=== PATIENT | female | born 1935 | race Asian ===

== ENCOUNTER 2021-02-04 08:17 | Emergency (ER) | payer MEDICARE, OTHER ==
[~2021-02-04] VITALS: Ht 154.9 cm; Wt 54.5 kg
[2021-02-04 08:44] VITALS: BP 142/103
[2021-02-04] MEDS ORDERED: SILVER SULFADIAZINE 1% 25 GM CREAM TP ONE (09:15)
[2021-02-04] MEDS ORDERED: PERTUSS(ACELL),DIPH,TET VAC/PF 0.5 ML SYRINGE IM. ONE (09:30)
[2021-02-04] MEDS ORDERED: ACETAMINOPHEN 325 MG TABLET PO ONE (09:30)
[2021-02-04] MEDS ORDERED: BACITRACIN 0.9 GM PACKET OINTMENT TP ONE (09:30)
== END 2021-02-04 10:00 | disposition home or self-care (01) ==
LOC: EMS 08:17
DX: T24.202A Burn of second degree of unspecified site of left lower limb, except ankle and foot, initial encounter (principal); X11.8XXA Contact with other hot tap-water, initial encounter; Y93.89 Activity, other specified; Y92.89 Other specified places as the place of occurrence of the external cause; Y99.8 Other external cause status
CPT/HCPCS: 16000; 16020; 90471; 90715; 99283